=== PATIENT | female | born 1980 | race Caucasian/White ===

== ENCOUNTER → 2023-09-09 | Outpatient (CLI) | payer SELFPAY ==
[2023-09-11 12:08] LABS: CCP IgG Antibodies 6 units (0-19); Complement C3 160 mg/dL (82-167)
== END | disposition home or self-care (01) ==
PROVIDERS: PCP Nurse Practitioner Family; Referring Provider Internal Medicine Rheumatology; Visit Provider Internal Medicine Rheumatology
DX: M06.4 Inflammatory polyarthropathy (principal); M17.0 Bilateral primary osteoarthritis of knee; R76.8 Other specified abnormal immunological findings in serum
CPT/HCPCS: 36415; 86160; 86200